=== PATIENT | female | born 1990 | race Caucasian/White ===

== ENCOUNTER 2021-10-06 08:59 | Outpatient (CLI) | payer OTHER, SELFPAY | END 2021-10-06 09:00 | disposition home or self-care (01) | PROVIDERS: PCP Family Medicine; Visit Provider Advanced Practice Midwife | DX: Z34.90 Encounter for supervision of normal pregnancy, unspecified, unspecified trimester (principal) | CPT/HCPCS: 86592 ==

== ENCOUNTER 2021-12-01 09:36 | Outpatient (CLI) | payer OTHER, SELFPAY ==
[2021-12-01 12:25] LABS: Hepatitis C Virus Antibody* Negative (Negative)
[2021-12-02 11:49] LABS: Varicella-Zoster Virus Ab, IgG 251.5 IV
[2021-12-02 12:10] LABS: Strep B DNA Probe NEGATIVE (Negative)
== END 2021-12-01 09:37 | disposition home or self-care (01) ==
PROVIDERS: PCP Family Medicine; Visit Provider Advanced Practice Midwife
DX: Z34.93 Encounter for supervision of normal pregnancy, unspecified, third trimester (principal); Z3A.36 36 weeks gestation of pregnancy
CPT/HCPCS: 86787; 86803; 87081; 87653

== ENCOUNTER 2021-12-26 06:46 | Inpatient (IN) | payer OTHER, SELFPAY ==
[2021-12-26] VITALS (74 sets, daily range): BP systolic 107–145; BP diastolic 55–88; PULSE 65–113; RESP 16; TEMP 36.4–36.9; O2SAT 84–100; BMI 28.5
[2021-12-26] MEDS: LACTATED RINGERS 1000 ML 1,000 ML IV (07:32)
[2021-12-26] MEDS: ROPIVACAINE 0.2% 100 ml 100 ML 12 MG EPIDURAL (08:03)
[2021-12-26] MEDS: LIDOCAINE 2% (PF) 5 ML VIAL EPIDURAL (08:03)
--- NOTE | 2021-12-26 08:08 | P.ANBPRC_ITS ---
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 Chicken, goats, ducks, sheep. Abuse: Denies past/unable to assess present Special Diet: none, but does try to eat healthy Ok with a blood transfusion: yes Culture or evangelical beliefs: denies RISK FACTORS Exercise Times/wk: Not as much in . Walking, lifting weights 2-3 days. Depression/Anxiety: Anxiety LLOYD: 6 PHQ 9: 3 Seat Belt Use: Routinely Smoking: Denies past/present Alcohol/day: Denies while Caffeine: 1-2 cups a week Drug Use: Denies past/present Chicken Pox: Yes as a child MRSA: Denies Smoking Status: Never smoker Meds Home Medications and Allergies Home Medications Medication Instructions Recorded Confirmed Type aspirin 81 mg tablet,delayed mg PO DAILY 10/06/21 12/22/21 History release prenat.vits,chet,mny-wwng-owhjl 1 tab PO QDAY 10/06/21 12/22/21 History Allergies Allergy/AdvReac Type Severity Reaction Status Date / Time No Known Allergies Allergy Unverified 12/22/21 11:13 Results Vital Signs Vital Signs: Last Vital Signs Temp 97.7 F 12/26/21 06:55 Pulse 85 12/26/21 08:07 Resp 16 12/26/21 06:55 BP 119/70 12/26/21 08:07 Pulse Ox 100 12/26/21 08:06 Weight: 82.871 kg Height: 170.18 cm Anesthesia Procedures Epidural Insertion Patient Location: OB Start Time: 07:30 Stop Time: 08:32 Start Date: 12/26/21 Stop Date: 12/26/21 Reason for Block: primary anesthetic Patient Position: sitting Performed By: Madi Pepe Preanesthetic Checklist: IV checked, risks and benefits discussed, surgical consent, monitors and equipment checked, pre-op evaluation, timeout performed and anesthesia consent Prep: chlorhexidine gluconate Monitoring: blood pressure monitoring, continuous pulse oximetry and heart rate Approach: midline Vertebral Space: lumbar (1-5) Needle Type: Tuohy needle Injection Technique: continuous catheter (continuous catheter) Needle gauge: 17 Needle Length (cm): 10 cm Needle Insertion Depth (cm): 6 Catheter Gauge: 19 Catheter Type: multi-orifice Catheter at skin depth (cm): 12 Test Dose Result: negative and lidocaine 1.5% with epinephrine 1 to 200,000
[2021-12-26 08:19] LABS: SARS PCR* Negative SARS-CoV-2 (Negative)
[2021-12-26] MEDS: fentaNYL 100 MCG/2 ML inj EPIDURAL (08:30)
--- NOTE | 2021-12-26 08:59 | W.PM.LDBA ---
Subjective History of Present Illness Narrative: Patient is being admitted to Labor and Delivery for []. She is a 31 year old at weeks gestation. Her full history and physical was dictated 12/08/21 by PETER De. Please see this for details. OB PROBLEM LIST: 1. Hx of Anxiety - has previously seen a therapist. Manages with diet and exercise, currently stable. Briefly managed with zoloft, but did not like how she felt on it. 2. Asthma - has not used inhaler in a few years. Exercise/cold induced 3. IBS- usually diarrhea OB - H&P: Exam Physical Exam: Vital signs: Temp Pulse Resp BP Pulse Ox 98.3 F 95 16 142/70 H 99 12/26/21 08:56 12/26/21 08:55 12/26/21 08:56 12/26/21 08:55 12/26/21 08:56 Constitutional: Constitutional: moderate distress Comments: Epidural recently placed, not yet having relief. Routine HEENT Exam: Head: Present atraumatic Routine Neck Exam: Neck: Present full ROM Detailed Neck Exam: Thyroids: Comments: Supple Routine Respiratory Exam: Respiratory: Present CTA bilaterally Routine Cardiovascular Exam: Cardiovascular: RRR Detailed Labor and Delivery Exam: Patient Gravid: yes Dilation (cm): 6 Effacement (%): 80 Cervix position: anterior Consistency: soft Tachysystole: No Contraction intensity: Strong/Firm Fetus (Single): Station: 0 Position: Left Occiput Transverse Amniotic Membrane Status: SROM Amniotic Membrane Fluid Description: Clear Heart Rate Baseline: 125 Monitor Accelerations: Present Monitor Decelerations: Variable Mcc Variability: Moderate (11-25) Routine Back/Spine/Pelvis Exam: Back/Spine: full ROM Routine Skin Exam: Present intact Routine Neurological Exam: Present alert, oriented X3 and normal speech Routine Psychiatric Exam: Present normal affect OB - Problem Based A/P Additional Plan (1) Spontaneous rupture of membranes: Status: Acute Plan ASSESSMENT:? 31 at 39 5/7 weeks gestation? complicated by:? Labor type: Spontaneous, Active labor? Category 1 FHR pattern.??Intermittent Category II Labor complicated by: none? GBS negative? ? PLAN:? 1. Routine intrapartum cares as ordered. Continue with expectant management? 2. Monitoring per policy, continuous with epidural placement 3. Initially planning unmedicated but decided to get epidural. Not having much relief with epidural, Anesthesia at bedside. Discussed quick cervical change can make it difficult for epidural to work well. 4. Patient encouraged to reposition and ambulate to promote physiologic labor and .? 5. Anticipate ? Delivery/Labor/Induction Plan Plan: expectant management
[2021-12-26] MEDS: LACTATED RINGERS 1000 ML 1,000 ML 125 ML IV (09:38)
[2021-12-26] MEDS: OXYTOCIN 30 unit/500 ML in NS 30 UNIT/500 ML BAG 300 UNIT IVPB (13:00)
[2021-12-26] MEDS: CITRIC ACID/SODIUM CITRATE 30 ML SOLUTION PO (13:25)
--- NOTE | 2021-12-26 14:06 | P.OBPRC_ITS ---
Procedure Delivery date: 12/26/21 Procedure Done: Global Intrapartal Events: None Delivery monitor: external FHT, external uterine and internal FHT (Scalp electrode placed while pushing due to recurrent decelerations) Route of delivery: Laceration description: Perineal - 2nd Degree Delivery repair: Vicryl Estimated blood loss (mL): 525 Anesthesia type: Epidural (Local for repair) Disposition: floor Narrative: The patient is a 31 year-old G1 now P1 admitted on 12/26/2021 at 39 Weeks, 5 Days gestation for spontaneous onset of labor with SROM.? Cervical exam on admission was 3 cm with membranes ruptured in vertex presentation.? Contractions were every 2-3 minutes.? heart rate demonstrated baseline 125 bpm with moderate variability, + accelerations, - decelerations; a category 1 tracing.? SROM occurred at 0100 with clear fluid. ? Labor Analgesia:? Epidural w/ local lidocaine for repair ? Pitocin:? Yes, AMTSL only ? Labor onset:? 12/26/2021 0100 ? Complete:?1032 AM ? Pushing:? 1136 AM ? heart tones during second stage were category II during pushing with variable or late decelerations present and good return to baseline with repositioning. ? Patient was admitted for spontaneous onset of labor and progressed normally. SROM occured at home with the onset of contractions at 0100. Patient was complete at 1032 and pushing at 1136. of a viable male at 1240 in left tilt position. Vertex delivered OA. No nuchal cord or shoulder. Body delivered easily and without incident. Infant passed to mothers abdomen with a vigorous cry. Cord was clamped and cut at > 5 minutes, with cessation of pulsation as requested by patient. APGARS were 8 at one minute and 9 at five minutes respectively. Mouth was bulb suctioned. Intact placenta with a 3 vessel cord delivered spontaneously at 1253. Fundus firm. Deep 2nd degree with extension up left labia and small right periurethral abrasion identified. Significant bleeding noted from perineal laceration, multiple sutures placed to stop the bleeding. Laceration repaired in typical fashion. Swelling notably increased in perineum during repair. Gushes of bleeding noted during repair, fundus firm. IV pitocin started. Bladder emptied at end of precedure. QBL 525 cc. Mother and baby stable; mother plans to breastfeed. weight pending. ? Placenta delivered spontaneously and complete at 1253 with a 3 vessel cord, marginal cord insertion noted. Dark red clot delivered with placenta, suspicious for slight placenta abruption. Patient declined pathology, plans to take placenta home. ? Mother and infant were stable after delivery. ? Lacerations:? Deep 2nd w/ L labial extension, repaired with 3-0 vicryl. ? Blood loss: 525 mL. Blood loss measurement type: QBL ? Sponge and needles counts are correct. [place] Infant Gender: Male presentation: vertex Placental Delivery Description: Spontaneous Cord Description: 3 Vessels OB Vag Delivery Procedures Additional Procedures ECV: No Cook Catheter Insertion: No NST: No D&C: No Laceration Repair: Yes Tubal Ligation : No Other: No
[2021-12-26] MEDS: IBUPROFEN 600 MG TABLET PO ×2 (16:34→22:41)
[2021-12-27 00:50] VITALS: BP 107/63; PULSE 86; RESP 16; TEMP 36.9
[2021-12-27] MEDS: IBUPROFEN 600 MG TABLET PO ×2 (04:35→11:50)
[2021-12-27 04:39] VITALS: BP 100/62; PULSE 79; RESP 16; TEMP 36.6
[2021-12-27 07:02] LABS: Hemoglobin* 9.3 gm/dL (12.0-16.0)
[2021-12-27 07:53] VITALS: BP 106/68; PULSE 77; RESP 16; TEMP 36.7; O2SAT 96
--- NOTE | 2021-12-27 10:43 | PM.OBDSVD1 ---
DS: Providers Provider Time Seen by Provider: 09:45 Date Seen: 12/27/21 Date of admission: 12/26/21 06:46 Primary care physician: Debbie Glass MD Admitting Clinician: Maria Fernanda Forbes CNM Attending Physician on discharge: Amanda Harris CNM Date of Discharge: 12/27/21 DS: Diagnosis Discharge Diagnosis (1) state: Status: Acute (2) Lactating mother: Status: Acute Exam Const: Vital Signs, click to edit/add: Vital Signs - 24 hr 12/26/21 10:45 12/26/21 10:49 12/26/21 11:01 Temperature 98.2 F Pulse Rate 74 78 Pulse Rate [Blood Pressure Cuff] Respiratory Rate 16 Blood Pressure 131/68 125/66 Blood Pressure [Ri ght Arm] Pulse [facility]ximetry [facility] 11:15 12/26/21 11:30 12/26/21 11:46 Temperature Pulse Rate 78 90 104 H Pulse Rate [Blood Pressure Cuff] Respiratory Rate Blood Pressure 112/59 L 123/55 L 116/66 Blood Pressure [Ri ght Arm] Pulse Oximetry [facility] 12/26/21 11:53 12/26/21 12:01 12/26/21 12:13 Temperature 97.6 F Pulse Rate 92 Pulse Rate [Blood Pressure Cuff] Respiratory Rate 16 Blood Pressure 115/73 Blood Pressure [Ri ght Arm] Pulse Oximetry 99 [facility] 12/26/21 12:32 12/26/21 12:34 12/26/21 12:34 Temperature Pulse Rate 97 Pulse Rate [Blood Pressure Cuff] Respiratory Rate Blood Pressure 122/61 Blood Pressure [Ri ght Arm] Pulse Oximetry 84 L 100 [facility] 12/26/21 12:55 12/26/21 13:09 12/26/21 13:24 Temperature Pulse Rate 94 96 93 Pulse Rate [Blood Pressure Cuff] Respiratory Rate Blood Pressure 145/66 H 114/74 108/75 Blood Pressure [Ri ght Arm] Pulse Oximetry [facility] 12/26/21 13:39 12/26/21 13:54 12/26/21 14:09 Temperature Pulse Rate 100 106 H 96 Pulse Rate [Blood Pressure Cuff] Respiratory Rate Blood Pressure 108/82 120/75 113/71 Blood Pressure [Ri ght Arm] Pulse Oximetry Oxygen Delivery Me thod 12/26/21 14:24 12/26/21 14:39 12/26/21 14:54 Temperature Pulse Rate 95 96 96 Pulse Rate [Blood Pressure Cuff] Respiratory Rate Blood Pressure 122/74 123/77 122/79 Blood Pressure [Ri ght Arm] Pulse Oximetry Oxygen Delivery Me thod 12/26/21 16:12 12/26/21 13:09 12/26/21 16:15 Temperature 98 F 98.1 F Pulse Rate 113 H Pulse Rate [Blood Pressure Cuff] 113 H Respiratory Rate 16 16 Blood Pressure 126/77 Blood Pressure [Ri ght Arm] 126/77 Pulse Oximetry Oxygen Delivery Me thod 12/26/21 20:26 12/27/21 00:50 12/27/21 04:39 Temperature 98.1 F 98.4 F 97.8 F Pulse Rate Pulse Rate [Blood Pressure Cuff] 90 86 79 Respiratory Rate 16 16 16 Blood Pressure Blood Pressure [Ri ght Arm] 107/69 107/63 100/62 Pulse Oximetry Oxygen Delivery Me thod Room Air Room Air Room Air 12/27/21 07:53 Temperature 98.1 F Pulse Rate Pulse Rate [Blood Pressure Cuff] 77 Respiratory Rate 16 Blood Pressure Blood Pressure [Ri ght Arm] 106/68 Pulse Oximetry 96 Oxygen Delivery Me thod Room Air Documenting provider has reviewed patient's vital signs: yes Common normals: no apparent distress, average body habitus, oriented x3, healthy appearing, alert and well nourished General appearance: cooperative, well kempt and well developed Orientation/consciousness: Yes awake, Yes oriented to person, Yes oriented to place and Yes oriented to time HENMT: Common normals: normocephalic and external nose normal Head and scalp: normocephalic Nose: external nose normal Eye: General eye: normal appearance of both eyes Neck & C-Spine: Common normals: full ROM and supple General: normal visual inspection Cervical spine: cervical ROM normal Chest: Common normals: inspection of chest normal and palpation of chest normal Chest: symmetrical chest wall rise Resp: Common normals: normal respiratory effort, no retractions, no use of accessory muscles and clear to auscultation bilaterally Effort & inspection: able to speak in complete sentences and symmetric chest movement Auscultation: clear to auscultation bilaterally Cardio: Common normals: regular rate and regular rhythm Rate: regular rate Rhythm: regular rhythm GI: Common normals: Normal to inspection, nondistended, normoactive bowel sounds present and soft to palpation Inspection: normal to inspection Auscultation: normoactive bowel sounds Palpation: soft and tender : Bimanual exam- vagina & uterus: other (Involuting) Uterus: 2/U and firm Lochia: moderate Uterus palpation: uterus tender Back & Pelvis: Common normals: thoracic and lumbar spine normal to inspection and no thoracic nor lumbar tenderness Thoracic spine/upper back: normal to inspection and thoracic ROM normal Lumbar spine/lower back: normal to inspection and lumbar ROM normal Extremity: Common normals: normal to inspection and full ROM General: normal exam except as noted Neuro: Common normals: oriented x3 Sensorium/orientation: awake, alert, oriented to person, oriented to place and oriented to time Speech: speech normal Psych: Common normals: mental status grossly normal, thought process normal and speech normal Appearance: grossly normal and well kempt Attitude: calm and engaged Activity/motor behavior: appropriate eye contact Speech: normal speech Thought process: normal thought process Thought content: normal thought content Attention/concentration: attention grossly intact Memory/cognition: memory grossly intact Insight: insight good Judgement: judgment good Skin: Common normals: no rashes or lesions noted General skin exam: no rashes or lesions noted OB - DS: Summary Hospital Course Hospital Course: Cah is a 31 year old G 1 now P 1 at 39 5/7 weeks gestation that was admitted to the Center on 12/26/21 for spontaneous onset of labor with SROM. She had an uncomplicated vaginal delivery. She delivered a viable male infantCarlos. She is breast feeding and reports it is going well. the patient has done well. supportive at bedside. Elicited and answered questions. Planning to discharge home today. Peripartum Data delivery method: Vaginal Laceration description: Perineal - 2nd Degree (repaired in the typical fashion) complications: none Infant Gender: Male Infant Discharge Plan: Home Status at Discharge Functional status at discharge: independent ambulation Overall status at discharge: patient is progressing back to baseline Time Spent with Patient Time attestation: Total time spent providing and/or coordinating discharge services: Time spent: Less than 30 minutes Discharge Plan Discharge Disposition: Home, Self-Care Date of Admission: 12/26/21 06:46 Attending Provider on Discharge: Amanda Harris Primary Care Provider: Debbie Glass Condition: Stable Anticipated Discharge Date/Time: 12/27/21 10:56 Discharge Medications: New docusate sodium 100 mg Capsule 100 mg PO BID PRNQty: 90 1RF ibuprofen 600 mg Tablet 600 mg PO Q6H PRNQty: 60 1RF acetaminophen 500 mg Tablet 1,000 mg PO Q6H PRNQty: 0 0RF Continued prenat.vits,chet,vzh-ulfq-glxox Tablet 1 tab PO QDAY Discontinued aspirin 81 mg tablet,delayed release (DR/EC) PO DAILY Discharge Orders: Discharge Order (Routine); Ordered 12/27/21 Ordered By: Amanda Harris Patient Education: OB Vaginal/Breast Feeding Activity Restrictions/Additional Instructions: Discharge instructions were reviewed with the patient including signs and symptoms of infection and home going medications Nothing vaginally for 6 weeks: no tampons or intercourse Do not drive while taking narcotic pain medication(s) Off Work or School for 6 weeks Symptoms to report to doctor: Bleeding that saturates more than one pad per hour Passing clots larger than the size of a golf ball Pain not relieved by prescribed medication Fever above 100.4 degrees Fahrenheit A foul vaginal odor Difficulty in emotions, mood, and functions Thoughts of hurting yourself and/or Painful, reddened area in your breast Any drainage, redness, or tenderness in your IV/epidural site Severe headache that doesn't improve after taking medications Changes in vision, including temporary loss of vision, blurred vision, and/or light sensitivity Upper abdominal pain (usually under ribs on the right side) Decrease in urination or painful, frequent urinating Chest pain Shortness of breath Tenderness or pain with redness and/swelling in the calf(s) of your leg 2-week visit: discuss infant feeding concerns, review control options and screen for anxiety/depression. 6-week visit for an annual exam. consultation services are available to all mothers and babies for the first year after delivery.? To make an appointment, please call [phone]. Activity Level: Activity as Tolerated Discharge Diet: Regular Follow Up Appointments: [facility] [Provider Group] Forms: MyHealth Info Instructions
[2021-12-27 11:52] VITALS: BP 112/69; PULSE 78; RESP 16; TEMP 36.6; O2SAT 99
[2021-12-27] MEDS: DOCUSATE SODIUM 100 MG CAPSULE PO (14:38)
== END 2021-12-27 14:45 | disposition home or self-care (01) | DRG 807 ==
LOC: OB OUT 06:47 → OB 06:47
PROVIDERS: Advanced Practice Midwife; Admitting Provider Advanced Practice Midwife; PCP Family Medicine; Visit Provider Advanced Practice Midwife
DX: O99.344 Other mental disorders complicating childbirth (principal); F41.9 Anxiety disorder, unspecified; O70.1 Second degree perineal laceration during delivery; O76 Abnormality in fetal heart rate and rhythm complicating labor and delivery; Z37.0 Single live birth; Z3A.39 39 weeks gestation of pregnancy
CPT/HCPCS: 01967; 36415; 84112; 85018; 87635; A9270; J2795; J3010; J7120

== ENCOUNTER 2022-01-06 14:07 | Outpatient (CLI) | payer OTHER, SELFPAY | END 2022-01-06 14:08 | disposition home or self-care (01) | LOC: NFLDREF 01-08 17:06 | PROVIDERS: PCP Family Medicine; Visit Provider Advanced Practice Midwife | DX: Z39.2 Encounter for routine postpartum follow-up (principal) | CPT/HCPCS: 87086; 87186 ==

== ENCOUNTER 2022-06-18 07:30 | Outpatient (RCR) | payer OTHER, SELFPAY | END 2022-10-21 23:59 | disposition home or self-care (01) | PROVIDERS: PCP Family Medicine; Visit Provider Advanced Practice Midwife | DX: N81.89 Other female genital prolapse (principal); Z51.89 Encounter for other specified aftercare | CPT/HCPCS: 97110; 97112; 97140; 97162; 97535 ==

== ENCOUNTER 2023-01-17 12:59 | Outpatient (CLI) | payer BC, SELFPAY ==
--- NOTE | 2023-01-17 13:00 | CRLHL7_ITS ---
For Patients: As a result of the Cures Act, medical imaging exams and procedure reports are released immediately into your electronic medical record. You may view this report before your referring provider. If you have questions, please contact your health care provider. INDICATION: First trimester scan, establish dates. COMPARISON: None. TECHNIQUE: Real-time paris-scale imaging of the pelvis was performed. FINDINGS: Sonographic imaging demonstrates a single living intrauterine gestation. The embryo demonstrates a regular cardiac rate measuring 154 beats per minute. The embryo`s crown-rump length measurement of 1.6 cm corresponds to a gestational age of 8 weeks 0 days with a sonographic due date of August 29, 2023. There is a normal-appearing yolk sac measuring 3.1 mm. There are no gross abnormalities noted within the embryo at this early state of development. The placenta has not yet developed. The gestational sac has a normal appearance and there is no evidence of a perigestational hemorrhage. The amount of fluid within the sac appears appropriate for gestational age. The cervix is closed. The myometrium appears normal. The ovaries are of normal size. The right ovary measures 3.3 x 2.1 x 2.3 cm. The left ovary measures 3.9 x 2.2 x 2.7 cm. Small corpus luteum cyst of on the left. There are no suspicious fluid collections noted in the cul-de-sac. IMPRESSION: Normal first trimester OB ultrasound exam. Gestational age calculated at 8 weeks 0 days with a sonographic due date of August 29, 2023. Dictated by Vamsi Reyes MD @ 01/18/2023 11:19:58 AM (Electronically Signed)
== END 2023-01-17 13:00 | disposition home or self-care (01) ==
LOC: US 13:00
PROVIDERS: PCP Family Medicine; Visit Provider Advanced Practice Midwife
DX: Z34.91 Encounter for supervision of normal pregnancy, unspecified, first trimester (principal); Z3A.08 8 weeks gestation of pregnancy
CPT/HCPCS: 76817; 86592; 86703; 86704; 86706; 86762; 86787; 86803; 86850; 86900; 86901; 87086; 87340

== ENCOUNTER 2023-04-15 08:03 | Outpatient (CLI) | payer BC, SELFPAY ==
--- OUTSIDE RECORDS SUMMARY | 2023-04-15 08:06 | XMS_ITS | Clinical Summary ---
Author Name Unknown Organization [facility] Address [place], [place] [address] Care Team Providers Care Business Integration Manager Name Role Phone Pcp, No Primary Care Provider Unavailabl e Allergies Active Allergy Reactions Criticality Noted Date Comments Oxycodone Intolerance-Can't Take 04/07/2016 Medications No known medications Active Problems No known active problems Immunizations Name Administration Dates Next Due DTP 11/14/1996, 3,01/09/1992,1991 ,1991 HIB PRP-T (ActHIB,Hiberix) 01/28/1993,01/09/1992 ,1991,1991 HPV 9 (Gardasil 9) 04/12/2018,08/09/2014, 015 Hepatitis A (Adult) 02/01/2013 Hepatitis B (Adult) 01/28/1993,08/19/1992,1991 Human Papilloma Virus Vaccine 11/19/2008 Influenza Virus, Unspecified 02/01/2013,01/15/20 11 Influenza, IIV3 (Age 6-35 mos) 03/13/2012 Influenza, IIV4 01/23/2019,03/03/2018 Influenza, IIV4 (=>6mos) MDV 01/28/2017 MMR 11/21/1998,08/19/1992 Meningococcal Vaccine (Menomune) 07/12/2005 Oral Polio Vaccine 01/28/1993,1991, 992 Polio Virus, Unspecified 11/14/1996 Td (Age >=7 Years) 07/26/2003 Tdap 02/01/2013,07/12/2005 Typhoid Parenteral,Killed 02/01/2013 Family History Medical History Relation Name Comments Endometriosis Father Relation Name Status Comments Father Alive Social History Tobacco Use Types Packs/Day Years Used Date Smoking Tobacco: Never Smokeless Tobacco: Never Alcohol Use Standard Drinks/Week Comments Yes 0 (1 standard drink = 0.6 oz pur e alcohol) Occasional glass of wine PHQ-2 Answer Date Recorded PHQ-2 Score 0 02/20/2019 Sex and Gender Information Value Date Recorded Sex Assigned at Not on file Gender Identity Not on file Sexual Orientation Not on file Obstetrics History Last Filed Vital Signs Vital Sign Reading Time Taken Comments Blood Pressure 130/78 02/20/2019 4:26 PM SENIOR LINUX ADMINISTRATOR Pulse 92 02/20/2019 4:26 PM SENIOR LINUX ADMINISTRATOR Temperature 37 ??C (98.6 ??F) 04/29/2016 8:58 PM SENIOR LINUX ADMINISTRATOR Respiratory Rate 18 04/29/2016 8:58 PM SENIOR LINUX ADMINISTRATOR Oxygen Saturation 99% 04/29/2016 8:58 PM SENIOR LINUX ADMINISTRATOR Inhaled Oxygen Concentration - - Weight 69.6 kg (153 lb 8 oz) 02/20/2019 4:26 PM SENIOR LINUX ADMINISTRATOR Height 170.2 cm (5' 7) 02/20/2019 4:26 PM SENIOR LINUX ADMINISTRATOR Body Mass Index 24.04 02/20/2019 4:26 PM SENIOR LINUX ADMINISTRATOR Plan of Treatment Health Maintenance Due Date Last Done Comments COVID-19 vaccine series (#1) 1991 HIV for age 15-65 2006 Hepatitis C screening for age 18-79 2009 BMI (ht and wt on same day) for age 18+ 02/21/2020 02/20/2019, 04/07/2016 Depression screening for age 12+ 02/24/2020 02/23/2019, 02/20/2019 Influenza for age 9-49 12/03/2022 9, 03/03/2018, 01/28/2017, Additional history exists Tetanus booster 02/01/2023 02/01/2013, 07/03, 07/26/2003 Pap test for age 21-65 05/20/2024 05/20/2021, 2021 Tdap Completed 02/01/2013, 07/12/2005 Pneumococcal series for age 6-64 Aged Out No longer eligible based on patient's age to complete this topic Care Teams Business Integration Manager Relationship Specialty Start Date End Date Pcp, No . PCP - General 04/07/16
--- NOTE | 2023-04-15 08:15 | CRLHL7_ITS ---
For Patients: As a result of the Century Cures Act, medical imaging exams and procedure reports are released immediately into your electronic medical record. You may view this report before your referring provider. If you have questions, please contact your health care provider. INDICATION: survey. TECHNIQUE: Conventional transabdominal two-dimensional grayscale ultrasound examination. COMPARISON: None. FINDINGS: There is a living fetus with gestational age of 20 weeks 2 days by LMP and 21 weeks 1 day by today`s measurements. EDC based on LMP is 08/31/2023. BPD: 4.9 cm, 20 weeks 6 days Head circumference: 18.7 cm, 21 weeks 2 days Abdominal circumference: 16.5 cm, 21 weeks 4 days Femur length: 3.5 cm, 21 weeks The weight is estimated at 409 grams, the 91st percentile. The heart rate is measured at 145 beats per minute and the rhythm appears regular. The head and spine are grossly intact. No gross facial abnormality is evident. The upper lip is intact. Four cardiac chambers are demonstrated. The heart and stomach appear to be on the same side. The diaphragm is intact. Two kidneys and a bladder are demonstrated. The cord insertion is normal and three cord vessels are noted. Four extremities are demonstrated. The amniotic fluid volume is within normal limits. The placenta is anterior with no evidence of previa. The cervical length is normal at 4.3 cm. IMPRESSION: 1. Living fetus with gestational age of 20 weeks 2 days by LMP and 21 weeks 1 day by today`s measurements. EDC based on LMP is 08/31/2023. 2. No anomaly evident. Dictated by Juan Valdez MD @ 04/15/2023 2:53:54 PM (Electronically Signed)
== END 2023-04-15 08:04 | disposition home or self-care (01) ==
LOC: US 08:04
PROVIDERS: PCP Family Medicine; Visit Provider Advanced Practice Midwife
DX: Z34.92 Encounter for supervision of normal pregnancy, unspecified, second trimester (principal); Z3A.20 20 weeks gestation of pregnancy
CPT/HCPCS: 76805

== ENCOUNTER 2023-06-10 08:41 | Outpatient (CLI) | payer BC, SELFPAY | END 2023-06-10 08:42 | disposition home or self-care (01) | LOC: NFLDREF 06-13 05:46 | PROVIDERS: PCP Family Medicine; Referring Provider Family Medicine; Visit Provider Advanced Practice Midwife | DX: Z34.93 Encounter for supervision of normal pregnancy, unspecified, third trimester (principal) | CPT/HCPCS: 86592 ==

== ENCOUNTER 2023-07-25 18:37 | Outpatient (CLI) | payer BC, SELFPAY ==
--- OUTSIDE RECORDS SUMMARY | 2023-07-25 18:40 | XMS_ITS | Clinical Summary ---
Author Name Unknown Organization [employer] [facility] [employer] [facility] Address [place], [place] [address] Care Team Providers Care Lgsw Name Role Phone Pcp, No Primary Care [...] Comments Blood Pressure 130/78 02/20/2019 4:26 PM INDEX EDITOR Pulse 92 02/20/2019 4:26 PM INDEX EDITOR Temperature 37 ??C (98.6 ??F) 04/29/2016 8:58 PM INDEX EDITOR Respiratory Rate 18 04/29/2016 8:58 PM INDEX EDITOR Oxygen Saturation 99% 04/29/2016 8:58 PM INDEX EDITOR Inhaled Oxygen Concentration - - Weight 69.6 kg (153 lb 8 oz) 02/20/2019 4:26 PM INDEX EDITOR Height 170.2 cm (5' 7) 02/20/2019 4:26 PM INDEX EDITOR Body Mass Index 24.04 02/20/2019 4:26 PM INDEX EDITOR Plan of Treatment Health Maintenance Due Date Last Done Comments HIV for age 15-65 2006 Hepatitis C screening for age 18-79 2009 BMI (ht and wt on same day) for age 18+ 02/21/2020 02/20/2019, 04/07/2016 Depression screening for age 12+ 02/24/2020 02/23/2019, 02/20/2019 COVID-19 vaccine series ( season) 2022 Tetanus booster 02/01/2023 02/01/2013, 07/03, 07/26/2003 Influenza for age 9-49 12/04/2023 9, 03/03/2018, 01/28/2017, Additional history exists Pap test for age 21-65 05/20/2024 05/20/2021, 2021 Tdap Completed 02/01/2013, 07/12/2005 Pneumococcal series for age 6-64 Aged Out No longer eligible based on patient's age to complete this topic Procedures Procedure Name Priority Date/Time Associated Diagnosis Comments HPV THIN PREP Routine 05/20/2021 9:45 AM INDEX EDITOR from Last 3 Months or Most Recently Relevant to Health Maintenance Results * HPV HIGH RISK (05/20/2021 9:45 AM INDEX EDITOR) TYPE 16 Negative Negative 05/22/2021 4:51 PM INDEX EDITOR [facility] TYPE 18 Negative Negative 05/22/2021 4:51 PM INDEX EDITOR [facility] OTHER HIGH RISK TYPES Negative Negative 05/22/2021 4:51 PM INDEX EDITOR [facility] Other (Cervical/Vagina l) 05/20/2021 9:45 AM INDEX EDITOR 05/21/2021 9:50 AM INDEX EDITOR Narrative [facility] - 05/22/2021 4:51 PM INDEX EDITOR HPV types 16, 18, 31, 33, 35, 39, 45, 51, 52, 56, 58, 59, 66 and 68 DNA were undetectable or below the pre-set threshold. Methodology: Elias Josephine 4800 HPV Test Maria Fernanda Forbes CN MICROBIOLOGY [facility] [address] [place] [address], from Last 3 Months or Most Recently Relevant to Health Maintenance Care Teams Lgsw Relationship Specialty Start Date End Date Pcp, No . PCP - General 04/07/16
[2023-07-25 18:48] VITALS: BP 127/79; PULSE 76
[2023-07-25 18:49] VITALS: PULSE 87; O2SAT 98
[2023-07-25 19:57] LABS: Bilirubin Urine Negative (Negative); Blood Urine Negative (Negative); Color Urine Yellow (Yellow); Glucose Urine Negative (Negative); Ketones Urine Negative (Negative); Leukocyte Esterase Urine Negative (Negative); Nitrite Urine Negative (Negative); Protein Urine Negative (Negative); Specific Gravity Urine 1.015 (1.000-1.030); Urobilinogen Urine 0.2 (0.2-1.0)
[2023-07-25 19:59] LABS: Appearance Urine Clear (Clear)
[2023-07-25 20:27] LABS: Fetal Fibronectin* Negative (Negative)
[2023-07-25] MEDS: BETAMETHASONE SOD PHOS/ACETATE 6 MG/ML ML 12 MG IM (20:27)
--- NOTE | 2023-07-25 20:39 | PM.OBLDTN ---
OB - Triage/Final Diagnosis Visit Information Time Seen by Provider: 20:00 Date Seen: 07/25/23 Date of evaluation: 07/25/23 Narrative: The patient is a 33 year old 2 para 1 at 34.5 weeks gestation by date of conception, who presents with right sided abdominal pain. She states that around 1745 this evening she had a sharp pain that doubled her over and made it difficult to walk. It was pretty constant with some waves of increased pain. She is appreciating good movement and denies leaking fluids, discharge, or bleeding. She denies signs of a UTI or other infections. she had felt healthy. On arrival it was noted that the pain increased with contractions that were traced by the TOCO. She has eaten normally today and feels that she has hydrated adequately. Per RN cervical exam she w found to be 1.5cm/60%/-3. A UA, GBS, and fFN were collected. After discussion she was given a dose of betamethasone. She does feel that her pain has improved as she has been lying down but has not completely dissipated. She had been drinking fluids since her arrival but a decision was made to give and IV fluid bolus. She was educated that if she is discharged that she would need to return tomorrow evening for a second dose of betamethasone. We discussed terbutaline but she is hesitant. Will plan to wait to see if there is cervical change and if the IV fluids decrease contractions. Recheck cervix at about 2 hours after initial check. Reason for evaluation: threatened labor (at 34.5 weeks) Comments/Additional reasons for admission: Contractions Q1-3 minutes palpating mild. Evaluation Cervical dilation (cm): 1 (1.5cm per RN exam) Cervical effacement (%): 60 Laboratory results: Laboratory Tests 07/25/23 Range/Units 19:47 Urine Color Yellow (Yellow) Urine Appearance Clear (Clear) Urine pH 7.0 (5.0-8.5) Ur Specific [place] 1.015 (1.000-1.030) Urine Protein Negative (Negative) Urine Glucose (UA) Negative (Negative) Urine Ketones Negative (Negative) Urine Blood Negative (Negative) Urine Nitrite Negative (Negative) Urine Bilirubin Negative (Negative) Urine Urobilinogen 0.2 (0.2-1.0) Ur Leukocyte Esterase Negative (Negative) Group B Strep DNA Pending Fibronectin Negative (Negative) Vital signs: Vital Signs - 24 hr 07/25/23 18:48 07/25/23 18:49 Pulse Rate 76 Blood Pressure 127/79 Pulse Oximetry 98 Fetus (Single) Heart Rate Baseline: 130 Senior Php Web Developer Variability: Moderate (6-25) Monitor Accelerations: Present Monitor Decelerations: None Station: -3 Final Diagnosis (1) Threatened labor: Status: Acute
[2023-07-25] MEDS: LACTATED RINGERS 1000 ML 1,000 ML IV (20:50)
--- NOTE | 2023-07-25 22:39 | PC.OBNST ---
NST Note NST Note Start: 07/25/23 18:42 Freq: ONCE Status: Active Protocol: Document 07/25/23 22:38 SORIN (Rec: 07/25/23 22:39 SORIN [id number]) NST Note 2 Para (# of births) 1 EDC 08/31/23 Gestational Age In Weeks & Days 34 Weeks & 5 Days Patient Presented with Complaint(s) of Pain If Pain, describe location right sided abdominal pain Reactive Yes Appropriate for Gestational Age Yes ANABEL Zheng RNC Date 07/25/23 Reactive Yes Appropriate for Gestational Age Yes ANABEL Keller RN Date 07/25/23 OB NST charge Yes Complete NST Note via Write Note Yes The provider's electronic signature indicates the NST is reactive/appropriate for gestational age. *Note to provider: If an addendum is required, open the patient's chart and click on the note under the Nurse/Allied Health tab.
[2023-07-26 15:07] LABS: Strep B DNA Probe Negative (Negative)
[2023-07-28 00:55] LABS: Strep B Susceptibility Needed? No
== END 2023-07-25 22:30 | disposition home or self-care (01) ==
LOC: OB OUT 18:38 → OB 18:41
PROVIDERS: PCP Family Medicine; Visit Provider Advanced Practice Midwife
DX: O47.03 False labor before 37 completed weeks of gestation, third trimester (principal); Z3A.34 34 weeks gestation of pregnancy
CPT/HCPCS: 59025; 81003; 84112; 87081; 87653; G0463; J0702; J7120

== ENCOUNTER 2023-07-26 20:23 | Outpatient (CLI) | payer BC, SELFPAY ==
--- OUTSIDE RECORDS SUMMARY | 2023-07-26 20:25 | XMS_ITS | Clinical Summary ---
Author Name Unknown Organization [employer] [facility] [employer] Address [place], [place] [address] Care Team Providers Care Community Pharmacist Name Role Phone Pcp, No Primary Care [...] Comments Blood Pressure 130/78 02/20/2019 4:26 PM ACCOUNTS RECEIVABLE MANAGER Pulse 92 02/20/2019 4:26 PM ACCOUNTS RECEIVABLE MANAGER Temperature 37 ??C (98.6 ??F) 04/29/2016 8:58 PM ACCOUNTS RECEIVABLE MANAGER Respiratory Rate 18 04/29/2016 8:58 PM ACCOUNTS RECEIVABLE MANAGER Oxygen Saturation 99% 04/29/2016 8:58 PM ACCOUNTS RECEIVABLE MANAGER Inhaled Oxygen Concentration - - Weight 69.6 kg (153 lb 8 oz) 02/20/2019 4:26 PM ACCOUNTS RECEIVABLE MANAGER Height 170.2 cm (5' 7) 02/20/2019 4:26 PM ACCOUNTS RECEIVABLE MANAGER Body Mass Index 24.04 02/20/2019 4:26 PM ACCOUNTS RECEIVABLE MANAGER Plan of Treatment Health Maintenance Due Date [...] HPV THIN PREP Routine 05/20/2021 9:45 AM ACCOUNTS RECEIVABLE MANAGER from Last 3 Months or Most Recently Relevant to Health Maintenance Results * HPV HIGH RISK (05/20/2021 9:45 AM ACCOUNTS RECEIVABLE MANAGER) TYPE 16 Negative Negative 05/22/2021 4:51 PM ACCOUNTS RECEIVABLE MANAGER [facility] TYPE 18 Negative Negative 05/22/2021 4:51 PM ACCOUNTS RECEIVABLE MANAGER [facility] OTHER HIGH RISK TYPES Negative Negative 05/22/2021 4:51 PM ACCOUNTS RECEIVABLE MANAGER [facility] Other (Cervical/Vagina l) 05/20/2021 9:45 AM ACCOUNTS RECEIVABLE MANAGER 05/21/2021 9:50 AM ACCOUNTS RECEIVABLE MANAGER Narrative [facility] - 05/22/2021 4:51 PM ACCOUNTS RECEIVABLE MANAGER HPV types 16, 18, 31, 33, 35, 39, 45, 51, 52, 56, 58, 59, 66 and 68 DNA were undetectable or below the pre-set threshold. Methodology: Elias Josephine 4800 HPV Test Maria Fernanda Forbes CN MICROBIOLOGY [facility] [address] [place] [address], from Last 3 Months or Most Recently Relevant to Health Maintenance Care Teams Community Pharmacist Relationship Specialty Start Date End Date Pcp, No . PCP - General 04/07/16
[2023-07-26 20:33] VITALS: BP 118/66; PULSE 88; RESP 16; TEMP 36.4
[2023-07-26] MEDS: BETAMETHASONE SOD PHOS/ACETATE 6 MG/ML ML 12 MG IM (20:42)
== END 2023-07-26 20:50 | disposition home or self-care (01) ==
LOC: OB CLI 20:23 → OB 20:23
PROVIDERS: PCP Family Medicine; Visit Provider Advanced Practice Midwife
DX: O47.03 False labor before 37 completed weeks of gestation, third trimester (principal); Z3A.34 34 weeks gestation of pregnancy
CPT/HCPCS: G0463; J0702

== ENCOUNTER 2023-08-29 03:32 | Inpatient (IN) | payer BC, SELFPAY ==
[2023-08-29] VITALS (62 sets, daily range): BP systolic 87–211; BP diastolic 48–130; PULSE 61–176; RESP 15–18; TEMP 36.6–36.9; O2SAT 81–100; BMI 29.7
--- OUTSIDE RECORDS SUMMARY | 2023-08-29 02:34 | XMS_ITS | Clinical Summary ---
Author Organization [email or web address] [facility] [employer] [facility] Address [place], [place] [address] Care Team Providers Care Cook Relief Name Role Phone Pcp, No Primary Care [...] Comments Blood Pressure 130/78 02/20/2019 4:26 PM FURNITURE FINISHER HELPER Pulse 92 02/20/2019 4:26 PM FURNITURE FINISHER HELPER Temperature 37 ??C (98.6 ??F) 04/29/2016 8:58 PM FURNITURE FINISHER HELPER Respiratory Rate 18 04/29/2016 8:58 PM FURNITURE FINISHER HELPER Oxygen Saturation 99% 04/29/2016 8:58 PM FURNITURE FINISHER HELPER Inhaled Oxygen Concentration - - Weight 69.6 kg (153 lb 8 oz) 02/20/2019 4:26 PM FURNITURE FINISHER HELPER Height 170.2 cm (5' 7) 02/20/2019 4:26 PM FURNITURE FINISHER HELPER Body Mass Index 24.04 02/20/2019 4:26 PM FURNITURE FINISHER HELPER Plan of Treatment Health Maintenance Due Date Last Done Comments HIV for age 15-65 2006 Hepatitis C screening for age 18-79 2009 BMI (ht and wt on same day) for age 18+ 02/21/2020 02/20/2019, 04/07/2016 Depression screening for age 12+ 02/24/2020 02/23/2019, 02/20/2019 COVID-19 vaccine series (2022- season) 2022 Tetanus booster 02/01/2023 02/01/2013, 07/03, [...] HPV THIN PREP Routine 05/20/2021 9:45 AM FURNITURE FINISHER HELPER from Last 3 Months or Most Recently Relevant to Health Maintenance Results * HPV HIGH RISK (05/20/2021 9:45 AM FURNITURE FINISHER HELPER) TYPE 16 Negative Negative 05/22/2021 4:51 PM FURNITURE FINISHER HELPER [facility] TYPE 18 Negative Negative 05/22/2021 4:51 PM FURNITURE FINISHER HELPER [facility] OTHER HIGH RISK TYPES Negative Negative 05/22/2021 4:51 PM FURNITURE FINISHER HELPER [facility] Other (Cervical/Vagina l) 05/20/2021 9:45 AM FURNITURE FINISHER HELPER 05/21/2021 9:50 AM FURNITURE FINISHER HELPER Narrative [facility] - 05/22/2021 4:51 PM FURNITURE FINISHER HELPER HPV types 16, 18, 31, 33, 35, 39, 45, 51, 52, 56, 58, 59, 66 and 68 DNA were undetectable or below the pre-set threshold. Methodology: Elias Josephine 4800 HPV Test Maria Fernanda Forbes [facility] MICROBIOLOGY [facility] [address] [place] [address], from Last 3 Months or Most Recently Relevant to Health Maintenance Care Teams Cook Relief Relationship Specialty Start Date End Date Pcp, No . PCP - General 04/07/16
[2023-08-29] MEDS: CALCIUM CARBONATE 500 MG CHEW PO (03:38)
[2023-08-29] MEDS: LACTATED RINGERS 1000 ML 1,000 ML 999 ML IV (03:39)
[2023-08-29 03:49] LABS: Basophils Absolute Auto 0.04 K/uL (0.00-0.30); Basophils Percent Auto 0.4 % (0.0-3.0); Eosinophils Absolute Auto 0.14 K/uL (0.00-0.50); Eosinophils Percent Auto 1.4 % (0.0-7.0); Hemoglobin* 13.7 gm/dL (12.0-16.0); Immature Granulocytes Abs Auto 0.08 K/uL (0.00-0.30); Immature Granulocytes Pct Auto 0.8 %; Lymphocytes Percent Auto 28.6 % (20-44); Mean Corpuscular HGB Conc 33 gm/dL (32-36); Mean Corpuscular Hemoglobin 29 pg (26-34); Mean Corpuscular Volume 88 fL (80-100); Monocytes Percent Auto 9.5 % (0.0-11.0); Neutrophils Absolute Auto 6.03 K/uL (1.7-7.0); Neutrophils Percent Auto 59.3 % (42.0-72.0); Platelet Count* 135 K/uL (140-440); RDW Coefficient of Variation % 13.9 % (11.5-15.5); Red Blood Count 4.67 m/uL (4.00-5.20); White Blood Count* 10.15 K/uL (4.50-11.00)
[2023-08-29 03:52] LABS: Slide Review Reflex No
[2023-08-29] MEDS: ROPIVACAINE 0.2% 100 ml 100 ML 12 MG EPIDURAL (04:10)
[2023-08-29] MEDS: BUPIVACAINE 0.25% PF 10 ML 10 ML ML EPIDURAL (04:10)
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
[2023-08-29] MEDS: PHENYLEPHRINE 100 MCG/ML SYRINGE IVP (05:29)
[2023-08-29] MEDS: LACTATED RINGERS 1000 ML 1,000 ML 125 ML IV (06:20)
--- NOTE | 2023-08-29 11:00 | W.PM.OBVAGDE ---
OB Procedure Vag Delivery Mother Details Mother Details: The patient is a 33 year-old, 2, now Para 2, admitted on 08/29/23 at 39.5 gestation. Additional Details Amniotic Membrane Status: SROM (Forebag ruptured in labor) Amniotic Membrane Rupture Date: 08/29/23 Amniotic Membrane Rupture Time: 01:45 Amniotic Membrane Fluid Description: Clear Analgesia/Anesthesia Type: Epidural Waterbirth: No Pitcoin: No (Pt declined AMTSL) Labor Onset: 02:30 Complete: 08:36 Pushin:39 Heart: heart tones during second stage were category II, reassuring with return to baseline between contractions and moderate variability throughout. Audible arrhythmia heard on the monitor multiple times during pushing. Delivery Details Delivery Date: 08/29/23 Delivery Time: 09:55 Route of delivery: Gender: Male Infant Viability: Alive; Heart Rate Present Position at Delivery: OA Delivery Details: Patient was admitted for spontaneous onset of labor and progressed normally. She initially had SROM at 0145 with clear fluid. She was checked around 0718, small rim of cervix remained. Large forebag was palpated and AROM'd for clear fluid. Patient was complete at 0836 and pushing at 0839. of a viable male at 0955 in slight right tilt/semi fowlers on the bed. Vertex delivered OA. No nuchal cord or shoulder. Body delivered slowly but easily and without incident. passed to mothers abdomen with a vigorous cry. Cord was clamped and cut at > 5 minutes, after delivery of placenta. APGARS were 8 at one minute and 9 at five minutes respectively. Mouth was bulb suctioned. Intact placenta with a 3 vessel cord delivered spontaneously at 1007, with large gush of bleeding. This resolved with delivery of placenta. Fundus firm. 2nd degree identified at site of previous tear. It was repaired in typical fashion. Significant swelling of perineum noted. During repair she was noted to have continued trickling of blood, fundus was boggy and massaged to firm. A large amount of urine was expressed during fundal massage. I&O cath for additional 150 cc. Bleeding then improved. QBL was significantly contaminated with urine and amniotic fluid. EBL of 600. Patient declines AMTSL, is agreeable to cytotec if additional bleeding concerns arise. Mother and baby stable; mother plans to breastfeed. Infant weight pending. 1 Minute Interval Total Score: 8 5 Minute Interval Total Score: 9 Additional Details Shoulder Dystocia: No Placenta Delivery Time: 01:45 Placental Delivery Description: Spontaneous Delivery repair: Vicryl Procedure Done: Global Blood Loss: 600 Laceration: Perineal - 2nd Degree Blood Loss Measurement Type: QBL Bakri Used: No Sponge/Need Count Correct: No Cord Vessel Description: 3 Vessels Event Summary Status: Mother and were stable after delivery. Disposition: floor
[2023-08-29] MEDS: ACETAMINOPHEN 500 MG TABLET 1000 MG PO ×2 (15:21→21:32)
[2023-08-29] MEDS: LIDOCAINE 1 % PF 30 ML INJECTION (16:17)
[2023-08-29] MEDS: IBUPROFEN 600 MG TABLET PO (18:20)
[2023-08-29] MEDS: BENZOCAINE/MENTHOL SPRAY 85 GM AEROSOL 1 APPLIC TOPICAL (21:34)
[2023-08-30] VITALS: BP 118/76; PULSE 75; RESP 16; TEMP 36.6; O2SAT 97
[2023-08-30] MEDS: IBUPROFEN 600 MG TABLET PO ×2 (00:28→06:10)
[2023-08-30] MEDS: ACETAMINOPHEN 500 MG TABLET 1000 MG PO ×2 (03:40→09:31)
[2023-08-30 03:42] VITALS: BP 99/61; PULSE 71; RESP 16; TEMP 36.5; O2SAT 96
[2023-08-30 06:53] LABS: Hemoglobin* 10.2 gm/dL (12.0-16.0)
--- NOTE | 2023-08-30 07:18 | PM.OBDSVD1 ---
DS: Providers Provider Date Seen: 08/30/23 Date of admission: 08/29/23 03:32 Primary care physician: Debbie Glass MD Admitting Clinician: Ruth Lucas CNM Attending Physician on discharge: Yajaira Diaz CNM Date of Discharge: 08/30/23 DS: Diagnosis Discharge Diagnosis (1) care and examination immediately after delivery: Status: Acute (2) Lactating mother: Status: Acute (3) Vaginal hematoma: Status: Acute (4) Thrombocytopenia affecting : Status: Acute Exam Narrative: Exam Narrative: VSS, afebrile GENERAL APPEARANCE: ?normal affect, alert, no distress MOOD: ?appropriate HEENT: normocephalic, neck supple, full ROM CHEST: ?Symmetrical chest wall movement. ?Normal respiratory effort. ?Clear to auscultation HEART: ?regular rate and rhythm ABDOMEN: ?soft, non-tender. Uterine fundus is firm, u/1 Umbilicus, Midline and is appropriate for the stage of recovery. ?Bowel sounds present. PERINEUM: ?mild edema of the perineum, there is a 2nd degree laceration that is healing well and vaginal hematoma on left side. Palpates moderately firm but not painful at this time. EXTREMITIES: ?normal and no edema Const: Vital Signs, click to edit/add: Vital Signs - 24 hr 08/29/23 07:20 08/29/23 07:20 08/29/23 07:36 Temperature Pulse Rate 101 H Pulse Rate [Pulse Oximeter] Respiratory Rate Blood Pressure 108/53 L 110/59 L Blood Pressure [Ri ght Arm] Pulse Oximetry Oxygen Delivery Ok thod 08/29/23 07:36 08/29/23 07:51 08/29/23 07:51 Temperature Pulse Rate 75 71 Pulse Rate [Pulse Oximeter] Respiratory Rate Blood Pressure 113/60 Blood Pressure [Ri ght Arm] Pulse Oximetry Oxygen Delivery Ok thod 08/29/23 08:05 08/29/23 08:05 08/29/23 08:20 Temperature Pulse Rate 82 Pulse Rate [Pulse Oximeter] Respiratory Rate Blood Pressure 101/56 L 113/63 Blood Pressure [Ri ght Arm] Pulse Oximetry Oxygen Delivery Ok thod 08/29/23 08:20 08/29/23 08:35 08/29/23 08:35 Temperature Pulse Rate 74 90 Pulse Rate [Pulse Oximeter] Respiratory Rate Blood Pressure 123/81 Blood Pressure [Ri ght Arm] Pulse Oximetry Oxygen Delivery Ok thod 08/29/23 08:46 08/29/23 08:51 08/29/23 08:51 Temperature Pulse Rate 86 Pulse Rate [Pulse Oximeter] Respiratory Rate Blood Pressure 107/63 Blood Pressure [Ri ght Arm] Pulse Oximetry 100 Oxygen Delivery Ok thod 08/29/23 09:05 08/29/23 09:05 08/29/23 09:20 Temperature Pulse Rate 71 Pulse Rate [Pulse Oximeter] Respiratory Rate Blood Pressure 112/66 109/73 Blood Pressure [Ri ght Arm] Pulse Oximetry Oxygen Delivery Ok thod 08/29/23 09:20 08/29/23 09:35 08/29/23 09:35 Temperature Pulse Rate 85 68 Pulse Rate [Pulse Oximeter] Respiratory Rate Blood Pressure 103/56 L Blood Pressure [Ri ght Arm] Pulse Oximetry Oxygen Delivery Ok thod 08/29/23 10:35 08/29/23 10:35 08/29/23 10:54 Temperature Pulse Rate 176 H Pulse Rate [Pulse Oximeter] Respiratory Rate Blood Pressure 177/130 H Blood Pressure [Ri ght Arm] Pulse Oximetry 100 Oxygen Delivery Ok thod 08/29/23 10:55 08/29/23 10:55 08/29/23 11:04 Temperature Pulse Rate 62 Pulse Rate [Pulse Oximeter] Respiratory Rate Blood Pressure 87/48 L 100/55 L Blood Pressure [Ri ght Arm] Pulse Oximetry Oxygen Delivery Ok thod 08/29/23 11:04 08/29/23 11:15 08/29/23 11:16 Temperature 98.2 F Pulse Rate 70 Pulse Rate [Pulse Oximeter] Respiratory Rate 16 Blood Pressure 97/51 L Blood Pressure [Ri ght Arm] Pulse Oximetry Oxygen Delivery Ok thod 08/29/23 11:16 08/29/23 11:47 08/29/23 11:47 Temperature Pulse Rate 75 73 Pulse Rate [Pulse Oximeter] Respiratory Rate Blood Pressure 100/54 L Blood Pressure [Ri ght Arm] Pulse Oximetry Oxygen Delivery Ok thod 08/29/23 12:01 08/29/23 12:01 08/29/23 12:16 Temperature Pulse Rate 79 Pulse Rate [Pulse Oximeter] Respiratory Rate Blood Pressure 101/53 L 96/54 L Blood Pressure [Ri ght Arm] Pulse Oximetry Oxygen Delivery Me thod 08/29/23 12:16 08/29/23 12:31 08/29/23 12:31 Temperature Pulse Rate 85 83 Pulse Rate [Pulse Oximeter] Respiratory Rate Blood Pressure 101/59 L Blood Pressure [Ri ght Arm] Pulse Oximetry Oxygen Delivery Me thod 08/29/23 12:46 08/29/23 12:46 08/29/23 13:01 Temperature Pulse Rate 79 Pulse Rate [Pulse Oximeter] Respiratory Rate Blood Pressure 106/56 L 131/60 Blood Pressure [Ri ght Arm] Pulse Oximetry Oxygen Delivery Me thod 08/29/23 13:01 08/29/23 16:00 08/29/23 20:00 Temperature 98.3 F 98.2 F Pulse Rate 94 Pulse Rate [Pulse Oximeter] 80 76 Respiratory Rate 16 17 Blood Pressure Blood Pressure [Ri ght Arm] 101/65 106/64 Pulse Oximetry 97 96 Oxygen Delivery Ok thod Room Air Room Air 08/30/23 00:00 08/30/23 03:42 Temperature 98 F 97.7 F Pulse Rate Pulse Rate [Pulse Oximeter] 75 71 Respiratory Rate 16 16 Blood Pressure Blood Pressure [Ri ght Arm] 118/76 99/61 Pulse Oximetry 97 96 Oxygen Delivery Me thod Room Air Room Air Documenting provider has reviewed patient's vital signs: yes OB - DS: Summary Hospital Course Hospital Course: Cha is a 33 y.o. who was admitted to [facility] for rupture of membranes and contractions. ?She had an uncomplicated NVD.?The patient feels well. ?The pain is well controlled with current medications. ?She has no new complaints. ?She is breast feeding and reports things are going well.? the patient has done well.? Vitals have been stable.? She has remained afebrile.? Has a good appetite, is tolerating a general diet. ?She is voiding without difficulty.? She is passing gas and has not had a bowel movement.? She is ambulating and denies any dizziness.? Has Small amount of rubra lochia. ?She is planning condoms for prevention. She reports minimal pain with her vaginal hematoma. Peripartum Data Infant delivery method: Vaginal Laceration description: Perineal - 2nd Degree complications: none [place] Infant Gender: Male Discharge Plan: Home Status at Discharge Functional status at discharge: independent ambulation Overall status at discharge: patient is progressing back to baseline Time Spent with Patient Time attestation: Total time spent providing and/or coordinating discharge services: Time spent: Less than 30 minutes Discharge Plan Discharge Disposition: Home, Self-Care Date of Admission: 08/29/23 03:32 Attending Provider on Discharge: Yajaira Diaz Primary Care Provider: Debbie Glass Condition: Stable Anticipated Discharge Date/Time: 08/30/23 12:00 Discharge Medications: New acetaminophen 500 mg Tablet 1,000 mg PO Q6H PRNQty: 0 0RF docusate sodium 100 mg Capsule 100 mg PO DAILY Qty: 90 2RF ibuprofen 600 mg Tablet 600 mg PO Q6H PRNQty: 60 0RF Continued prenat.vits,chet,lip-bsgy-bcsds Tablet 1 tab PO QDAY L.acidophilus-Bifido.longum [Probiotic Pearls] 15 mg (1 billion cell) capsule,delayed release(DR/EC) 1 cap PO QDAY Discharge Orders: Discharge Order (Routine); Ordered 08/30/23 Ordered By: Yajaira Diaz Patient Education: OB Over the Counter Medication Information, OB Vaginal/Breast Feeding Activity Level: Activity as Tolerated Discharge Diet: Regular Follow Up Appointments: [facility] [Provider Group] Forms: MyHealth Info Instructions
[2023-08-30 08:27] VITALS: BP 95/55; PULSE 71; RESP 16; TEMP 36.6; O2SAT 97
[2023-08-30] MEDS: DOCUSATE SODIUM 100 MG CAPSULE PO (09:32)
[2023-08-30 09:36] VITALS: BP 108/71
[2023-08-30 12:25] LABS: Rapid Plasma Reagin (RPR) Non Reactive (Non Reactive)
== END 2023-08-30 11:50 | disposition home or self-care (01) | DRG 560 ==
LOC: OB OUT 03:43 → OB 03:43
PROVIDERS: Admitting Provider Advanced Practice Midwife; PCP Family Medicine; Visit Provider Advanced Practice Midwife
DX: O42.02 Full-term premature rupture of membranes, onset of labor within 24 hours of rupture (principal); O99.344 Other mental disorders complicating childbirth; F41.9 Anxiety disorder, unspecified; O70.1 Second degree perineal laceration during delivery; J45.20 Mild intermittent asthma, uncomplicated; O99.12 Other diseases of the blood and blood-forming organs and certain disorders involving the immune mechanism complicating childbirth; D69.6 Thrombocytopenia, unspecified; O71.82 Other specified trauma to perineum and vulva; Z37.0 Single live birth; Z3A.39 39 weeks gestation of pregnancy
CPT/HCPCS: 01967; 36415; 85018; 85025; 86592; 86850; 86900; 86901; G0463; A9270; J0665; J2001; J2371; J2795; J7120

== ENCOUNTER 2023-09-12 12:17 | Outpatient (CLI) | payer BC, SELFPAY ==
--- OUTSIDE RECORDS SUMMARY | 2023-09-16 20:43 | XMS_ITS | Clinical Summary ---
Author Organization [employer] [facility] Address [place], [place] [address] Care Team Providers Care Case Hardener Name Role Phone Pcp, No Primary Care [...] Comments Blood Pressure 130/78 02/20/2019 4:26 PM HOMEMAKING REHABILITATION CONSULTANT Pulse 92 02/20/2019 4:26 PM HOMEMAKING REHABILITATION CONSULTANT Temperature 37 ??C (98.6 ??F) 04/29/2016 8:58 PM HOMEMAKING REHABILITATION CONSULTANT Respiratory Rate 18 04/29/2016 8:58 PM HOMEMAKING REHABILITATION CONSULTANT Oxygen Saturation 99% 04/29/2016 8:58 PM HOMEMAKING REHABILITATION CONSULTANT Inhaled Oxygen Concentration - - Weight 69.6 kg (153 lb 8 oz) 02/20/2019 4:26 PM HOMEMAKING REHABILITATION CONSULTANT Height 170.2 cm (5' 7) 02/20/2019 4:26 PM HOMEMAKING REHABILITATION CONSULTANT Body Mass Index 24.04 02/20/2019 4:26 PM HOMEMAKING REHABILITATION CONSULTANT Plan of Treatment Health Maintenance Due Date [...] HPV THIN PREP Routine 05/20/2021 9:45 AM HOMEMAKING REHABILITATION CONSULTANT from Last 3 Months or Most Recently Relevant to Health Maintenance Results * HPV HIGH RISK (05/20/2021 9:45 AM HOMEMAKING REHABILITATION CONSULTANT) TYPE 16 Negative Negative 05/22/2021 4:51 PM HOMEMAKING REHABILITATION CONSULTANT [facility] TYPE 18 Negative Negative 05/22/2021 4:51 PM HOMEMAKING REHABILITATION CONSULTANT [facility] OTHER HIGH RISK TYPES Negative Negative 05/22/2021 4:51 PM HOMEMAKING REHABILITATION CONSULTANT [facility] Other (Cervical/Vagina l) 05/20/2021 9:45 AM HOMEMAKING REHABILITATION CONSULTANT 05/21/2021 9:50 AM HOMEMAKING REHABILITATION CONSULTANT Narrative [facility] - 05/22/2021 4:51 PM HOMEMAKING REHABILITATION CONSULTANT HPV types 16, 18, 31, 33, 35, 39, 45, 51, 52, 56, 58, 59, 66 and 68 DNA were undetectable or below the pre-set threshold. Methodology: Elias Josephine 4800 HPV Test Maria Fernanda Forbes [facility] MICROBIOLOGY [facility] [address] [place] [address], from Last 3 Months or Most Recently Relevant to Health Maintenance Care Teams Case Hardener Relationship Specialty Start Date End Date Pcp, No . PCP - General 04/07/16
== END 2023-09-12 12:18 | disposition home or self-care (01) ==
LOC: NFLDREF 09-16 20:41
PROVIDERS: PCP Family Medicine; Referring Provider Family Medicine; Visit Provider Advanced Practice Midwife
DX: N89.8 Other specified noninflammatory disorders of vagina (principal)
CPT/HCPCS: 87086

== ENCOUNTER 2023-10-17 13:00 | Outpatient (CLI) | payer BC, SELFPAY ==
--- OUTSIDE RECORDS SUMMARY | 2023-10-17 13:03 | XMS_ITS | Clinical Summary ---
Author Organization [employer] [facility] Address [place], [place] [address] Care Team Providers Care Plate Conditioner Name Role Phone Pcp, No Primary Care [...] Comments Blood Pressure 130/78 02/20/2019 4:26 PM CRIMINAL RESEARCHER Pulse 92 02/20/2019 4:26 PM CRIMINAL RESEARCHER Temperature 37 ??C (98.6 ??F) 04/29/2016 8:58 PM CRIMINAL RESEARCHER Respiratory Rate 18 04/29/2016 8:58 PM CRIMINAL RESEARCHER Oxygen Saturation 99% 04/29/2016 8:58 PM CRIMINAL RESEARCHER Inhaled Oxygen Concentration - - Weight 69.6 kg (153 lb 8 oz) 02/20/2019 4:26 PM CRIMINAL RESEARCHER Height 170.2 cm (5' 7) 02/20/2019 4:26 PM CRIMINAL RESEARCHER Body Mass Index 24.04 02/20/2019 4:26 PM CRIMINAL RESEARCHER Plan of Treatment Health Maintenance Due Date [...] HPV THIN PREP Routine 05/20/2021 9:45 AM CRIMINAL RESEARCHER from Last 3 Months or Most Recently Relevant to Health Maintenance Results * HPV HIGH RISK (05/20/2021 9:45 AM CRIMINAL RESEARCHER) TYPE 16 Negative Negative 05/22/2021 4:51 PM CRIMINAL RESEARCHER [facility] TYPE 18 Negative Negative 05/22/2021 4:51 PM CRIMINAL RESEARCHER [facility] OTHER HIGH RISK TYPES Negative Negative 05/22/2021 4:51 PM CRIMINAL RESEARCHER [facility] Other (Cervical/Vagina l) 05/20/2021 9:45 AM CRIMINAL RESEARCHER 05/21/2021 9:50 AM CRIMINAL RESEARCHER Narrative [facility] - 05/22/2021 4:51 PM CRIMINAL RESEARCHER HPV types 16, 18, 31, 33, 35, 39, 45, 51, 52, 56, 58, 59, 66 and 68 DNA were undetectable or below the pre-set threshold. Methodology: Elias Josephine 4800 HPV Test Maria Fernanda Forbes [facility] MICROBIOLOGY [facility] [address] [place] [address], from Last 3 Months or Most Recently Relevant to Health Maintenance Care Teams Plate Conditioner Relationship Specialty Start Date End Date Pcp, No . PCP - General 04/07/16
--- NOTE | 2023-10-17 14:01 | W.PM.LAC.MC ---
Consult Note - Mom Date of Visit Date of visit: 10/17/23 agriculture consultant: [address] Visit Code: Visit (strong letdown, gassy baby) Patient's Information Phone number: [phone] : 2 Para: 2 Allergies No Known Allergies Allergy (Verified 09/12/23 11:44) Mother's Medical History: Medical History (Updated 09/03/23 @ 00:01 by Background Daemon) Vaginal mass ?N89.8 - Other specified noninflammatory disorders of vagina (ICD-10) Depression ?F32.A - Depression, unspecified (ICD-10) Anxiety ?F41.9 - Anxiety disorder, unspecified (ICD-10) Work Plans: return to work, but material preparation worker; 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 so will do some bottles, and some Delivery Information Delivery type: Vaginal Weeks Gestation: 39w Gestational Age: LGA Weight: 4.28 kg Baby's Information Baby's Age at Visit: 7 weeks today Baby's Provider or Clinic: [facility] Jaundice: No Past Experience Past Experience: Yes (breastfed first child without difficulty) Current Frequency of Day Feedings: every 1.5-2 hours Frequency of Night Feedings: every 2 hours Both Breasts: Yes (sometimes, in the daytime sometimes just one side due to volume) Suck: strong Latch: on and off repeatedly Length of Time: 20 min Goals: a year Pumping Pumping: Yes (using a [employer] to collect milk the drips during letdowns, no pumping) Quantity Pumped: about 1 oz Supplementing EMB Supplement: Yes (will give milk collected during the day if still acts hungry in the evening) Formula Supplement: No Baby Elimination Number of Wet Diapers a Day: 6 or more Number of BM a Day: 1-2, yellow/brown in color Breast/Nipple Condition Engorgement: No Maternal Nipple Condition - Left: Common Nipple Maternal Nipple Condition - Right: Common Nipple Sore Nipples: No Onsite Pre-Feed weight: 5.25 kg Post-Feed weight: 5.295 kg Milk Transferred (mL): 45 Pre-Nursing Left Nipple: Within Normal Limits Pre-Nursing Right Nipple: Within Normal Limits Post-Nursing Left Nipple: Within Normal Limits Post-Nursing Right Nipple: Within Normal Limits Assessments/Interventions Assessments/Interventions: Mom with strong letdown and baby on and off to manage flow of milk. Discussed techniques to help him with this until he can manage flow more easily: Can try more upright feeding to let gravity help him manage flow Light pressure on partial milk ducts during initial letdown and ease up after fullness has lessened Slightly unccoridnated suck patter; discussed different pacifier (when using) to more closely resemble mom's nipple vs current one in use (latonya has a choppy suck) When bottle feeding, give him chin support if needed to keep a tight latch on bottle nipple to prevent air intake and following gassiness Time spent with mom and baby: 50 minutes Meds Home Medications and Allergies Home Medications ?Medication ?Instructions ?Recorded ?Confirmed ?Type prenat.vits,chet,nfp-[id number] 1 tab PO QDAY 10/06/21 09/12/23 History L.acidophilus-bif.longum 15 mg (1 1 cap PO QDAY 07/08/23 08/29/23 History billion cell)capsule,delayed release (Probiotic Pearls) Allergies Allergy/AdvReac Type Severity Reaction Status Date / Time No Known Allergies Allergy Verified 09/12/23 11:44
== END 2023-10-17 13:01 | disposition home or self-care (01) ==
PROVIDERS: PCP Family Medicine; Visit Provider Obstetrics & Gynecology
DX: Z39.1 Encounter for care and examination of lactating mother (principal)
CPT/HCPCS: G0463